=== PATIENT | female | born 1965 | race Caucasian/White ===

== ENCOUNTER 2019-05-02 09:05 | Observation (INO) | payer SELFPAY ==
[2019-05-02 09:52] LABS: #Basophils 0.1 thou/uL (0.0-0.2); #Eosinphils 0.1 thou/uL (0.0-0.7); #Lymphocytes 2.1 thou/uL (1.20-3.40); #Monocytes 0.6 thou/uL (0.11-0.59); #Neutrophils 4.1 thou/uL (1.40-6.50); %Basophils 0.8 % (0.0-1.0); %Eosinophils 1.9 % (0.0-10.0); %Lymphocytes 30.1 % (21.0-51.0); %Neutrophils 59.3 % (42.0-75.0); Hemoglobin 13.2 g/dL (12.0-16.0); Mean Corpuscular HGB CONC 33.4 g/dL (32.0-36.0); Mean Corpuscular Hemoglobin 31.3 pg (27.0-31.0); Mean Corpuscular Volume 93.7 fL (78.0-98.0); Mean Platelet Volume 7.7 fL (7.4-10.4); Platelet Count 268 thou/uL (130-400); RBC Distribution Width 11.4 % (11.5-14.5); Red Blood Cell (RBC) Count 4.22 mill/uL (4.20-5.40); White Blood Cell (WBC) Count 6.9 thou/uL (4.8-10.8)
--- NOTE | 2019-05-02 10:02 | RAD ---
EXAM: Single view of the chest HISTORY: Chest pain COMPARISON: 08/04/2018 FINDINGS: Single view of the chest shows a normal sized cardiomediastinal silhouette. There is no isaac dence of consolidation, mass, or pleural effusion. The bones are unremarkable. IMPRESSION: No evidence of acute cardiopulmonary disease
[2019-05-02] MEDS ORDERED: Nitroglycerin 0.4 MG TAB 1 EACH ONE (10:43)
[2019-05-02] MEDS ORDERED: Aspirin Chewable 81 MG TAB ONE (10:43)
[2019-05-02] MEDS ORDERED: Fentanyl 100 MCG/2 ML VIAL ONE (11:08)
[2019-05-02 11:32] LABS: ALT (SGPT) 43 U/L (8-55); AST (SGOT) 29 U/L (5-34); Albumin 4.1 g/dL (3.5-5.0); Alkaline Phosphatase 77 U/L (40-150); Anion Gap 13 mmol/L (10-20); BUN (Urea Nitrogen) 14 mg/dL (9.8-20.1); Bilirubin, Total 0.7 mg/dL (0.2-1.2); Calc. Creatinine Clearance 0 mL/min (70-130); Calcium 9.2 mg/dL (7.8-10.44); Carbon Dioxide 26 mmol/L (22-29); Chloride 100 mmol/L (98-107); Estimated GFR-MDRD 76; Globulin 3.5 g/dL (2.4-3.5); Glucose 92 mg/dL (70-105); Lipase 42 U/L (8-78); Potassium 3.9 mmol/L (3.5-5.1); Protein, Total 7.6 g/dL (6.0-8.3); Sodium 135 mmol/L (136-145)
[2019-05-02 14:28] LABS: Troponin I Less than 0.010 ng/mL (< 0.028)
[2019-05-02] MEDS ORDERED: Ondansetron ODT 4 MG TAB SL PRN (16:06)
[2019-05-02] MEDS ORDERED: Ondansetron PF 4 MG/2 ML Vial IVP PRN (16:06)
[2019-05-02] MEDS ORDERED: Sodium Chloride 0.9% 1,000 ML IV SCH (16:06)
[2019-05-02 16:13] VITALS: BMI 39.1
[2019-05-02 17:39] LABS: Troponin I Less than 0.010 ng/mL (< 0.028)
[2019-05-02] MEDS ORDERED: Nitroglycerin 0.4 MG TAB (25 Tab Bottle) PO PRN (18:44)
[2019-05-02] MEDS ORDERED: HYDROcodone/Acetaminophen 5/325 mg Tablet PO PRN (20:28)
[2019-05-02] MEDS ORDERED: Acetaminophen 500 MG TAB PO PRN (20:28)
[2019-05-02] MEDS ORDERED: Ondansetron ODT 4 MG TAB PO PRN (20:28)
[2019-05-02] MEDS ORDERED: Atenolol 50 MG TAB PO SCH (21:00)
[2019-05-02] MEDS ORDERED: Dicyclomine 10 MG CAP PO PRN (21:00)
[2019-05-02] MEDS ORDERED: traMADol HCl 50 MG TAB PO PRN (21:00)
[2019-05-02] MEDS ORDERED: Nortriptyline 10 MG CAP PO SCH (21:00)
--- NOTE | 2019-05-03 01:22 | HP ---
CHIEF COMPLAINT: Chest pain. HISTORY OF PRESENT ILLNESS: The patient is a 53-year-old female with past medical history significant for hypertension, untreated hyperlipidemia, obesity, and family history of coronary artery disease, who presented to the hospital today with complaints of chest pain that has been going on for the past several days. The patient states that the pain begins in the center of her chest and radiates to the left shoulder and left arm. It is associated with shortness of breath and palpitations. She states that the pain has been somewhat constant, but did get better last night when her made her a mixed drink. She was seen by her PCP at [facility], who recommended the patient come to the ER yesterday; however, the patient could not present to the ER secondary to some type of transportation issue. She states that she had chest discomfort like this about a year ago and was seen in the [place] [facility] where EKG and blood work were done and she was told that the pain was likely noncardiac. Since her arrival to the hospital, workup has included serial cardiac enzymes which are negative x3. Her EKG shows normal sinus rhythm. There are no ischemic ST or T-wave changes noted. Interestingly, she did say that when she was given sublingual nitroglycerin, her chest pain became worse, along with her palpitations. At the time of my interview, the patient is resting comfortably and states that her chest discomfort is mild at this time. Chest x-ray shows no acute cardiopulmonary process. REVIEW OF SYSTEMS: A 12-point review of systems performed and is negative except that stated above. The patient denies any dysuria, blood in urine or stool, or reflux at this time. She has had no recent illnesses or recent ill contacts. ALLERGIES: CEFRADINE AND SULFA. HOME MEDICATIONS: 1. Atenolol 50 mg tablet, one tablet p.o. at bedtime. 2. Bentyl 20 mg tablet p.o. t.i.d. p.r.n. 3. Cymbalta 30 mg capsule, one capsule daily. 4. Naproxen 500 mg tablet, one tablet p.o. b.i.d. p.r.n. 5. Nortriptyline 10 mg tablet p.o. at bedtime. 6. Pantoprazole 40 mg tablet, one tablet p.o. at bedtime. 7. Tramadol 50 mg tablet, one tablet p.o. t.i.d. p.r.n. PAST MEDICAL HISTORY: Positive for chronic back pain, GERD, history of gastric ulcers and colonic polyps. Also positive for hypertension, hyperlipidemia, and fibromyalgia. PAST SURGICAL HISTORY: History of colonoscopy and hysterectomy. PSYCHIATRIC HISTORY: Positive for anxiety, depression, and PTSD. She states that she follows up with [facility] on a weekly basis. SOCIAL HISTORY: The patient does drink alcohol on occasion. She has no smoking history or history of illicit drug use. FAMILY HISTORY: Positive for coronary artery disease in her mother who had bypass surgery fairly recently. CODE STATUS: The patient is a full code and this was discussed with the patient at length. PHYSICAL EXAMINATION: VITAL SIGNS: Blood pressure 125/56, pulse is 67, respirations 20, O2 saturation is 97% on room air, patient is afebrile. GENERAL: The patient is a moderately obese female, resting in bed, in no acute distress. HEENT: Head is atraumatic and normocephalic. Mucous membranes are moist. NECK: Supple. No lymphadenopathy. Trachea is midline. No carotid bruits. CV: S1 and S2, regular rate and rhythm. No appreciable murmurs, rubs, or gallops. LUNGS: Regular respiratory rate and pattern. Clear to auscultation bilaterally. ABDOMEN: Positive bowel sounds. Nontender, obese, soft. No masses noted. EXTREMITIES: No lower extremity pitting edema. +2 DP pulses bilaterally. SKIN: Warm and dry. NEUROLOGIC: Cranial nerves II through XII are grossly intact. The patient is alert and oriented x3. The patient is nonfocal. LABORATORY DATA: White blood cell count 6.9, hemoglobin 13.2, hematocrit 39.5, platelet count is 268. Sodium 135, potassium 3.9, chloride 100, carbon dioxide 26, anion gap is 13, BUN 14, creatinine 0.8. AST, ALT, and alkaline phosphatase are all within normal limits. Serial troponin is negative x3. Lipase is 42. ASSESSMENT: 1. Chest pain, atypical and typical features, acute coronary syndrome ruled out. 2. Palpitations, likely premature ventricular contractions versus premature atrial contractions. 3. Hypertension. 4. Hyperlipidemia, currently untreated. 5. Fibromyalgia. 6. Anxiety/depression/post-traumatic stress disorder. 7. Family history of coronary artery disease. PLAN: At this time, we will proceed with nuclear stress test to rule out reversible ischemia in this patient with multiple risk factors for coronary artery disease. We will continue her antihypertensive regimen along with her Cymbalta and nortriptyline. We will obtain a fasting lipid panel tomorrow morning and initiate statin therapy accordingly. Further recommendations based on findings of noninvasive testing to be performed tomorrow morning. The care of this patient was discussed with Dr. Horn who agrees with the plan as outlined above. Job ID: [id number]
[2019-05-03 07:15] LABS: Cardiac Risk 6.4 (Less than 4.5)
[2019-05-03 08:27] VITALS: TEMP 97.8
[2019-05-03] MEDS ORDERED: DULoxetine 30 MG CAP PO SCH (09:00)
[2019-05-03 12:33] VITALS: BP 127/69
--- NOTE | 2019-05-03 12:41 | NM ---
NM Cardiac Stress W EF WF History: [Chest pain] Comparison: None. Findings: Stress was performed after intravenous ministration 3 2.2 mCi technetium 99m sestamibi. No rest images were obtained. Adequate left ventricular uptake of radiotracer. Normal wall motion. Calculated ejection fraction is 84%. No scar or ischemia. Impression: Normal examination.
[2019-05-03] MEDS ORDERED: ADENOSINE 60 MG/20 ML VIAL ONE (14:33)
--- NOTE | 2019-05-03 20:22 | DIS ---
DATE OF ADMISSION: 05/02/2019 DATE OF DISCHARGE: 05/03/2019 CHIEF COMPLAINT: On admission: Chest pain. DISCHARGE DIAGNOSES: 1. Chest pain, resolved, acute coronary syndrome ruled out. MPI negative for reversible ischemia, suspect musculoskeletal versus fibromyalgia versus possible GI related. 2. Hypertension, well controlled on atenolol. 3. Hyperlipidemia. 4. Anxiety/posttraumatic stress disorder. 5. Fibromyalgia. BRIEF HOSPITAL COURSE: The patient is a 53-year-old female with past medical history outlined as above, who presented to the emergency room with complaints of chest pain that actually had been ongoing for the past several days. It had been somewhat constant, but was also partially relieved when the patient's made her a next drink. The patient was admitted for chest pain rule out. Her serial troponin was negative x3. Her EKG showed sinus rhythm with no notable ischemic ST or T-wave changes. Given her multiple risk factors including family history of coronary artery disease, she did undergo a nuclear stress test that showed no evidence of reversible ischemia and normal left ventricular systolic function with EF calculated at 84%. On the morning of my interview, the patient states that she has not had any further chest pain today. She denies any chest pain or palpitations. Review of telemetry shows no PVCs, PACs, or other arrhythmia. The patient's cholesterol was significantly elevated with total cholesterol of 225 and LDL at 169, and this was discussed with the patient at length. DISCHARGE DISPOSITION: Home. CONDITION AT DISCHARGE: Stable. DISCHARGE INSTRUCTIONS/FOLLOWUP CARE: The patient will continue aggressive risk factor modification including continuation of her beta mahendra and monitoring her blood pressure at home. Given her mixed hyperlipidemia, I will start medical therapy with Lipitor 20 mg at bedtime. The patient has been counseled on this medication as well as possible side effects. She will follow up with her primary care physician at [facility] for followup labs including repeat LFTs after the patient has been initiated on statin therapy. Regarding aspirin 81 mg daily, I have discussed this with the patient at length as well, and she will discuss this with her primary care physician. There is conflicting research at this time regarding aspirin for primary prevention in patients with no known disease. All questions have been answered to the patient's satisfaction, and she will be discharged home in good condition today. Care of this patient has been discussed with Dr. Robles who agrees with the above. Job ID: [id number]
== END 2019-05-03 13:37 | disposition home or self-care (01) ==
LOC: ERS 09:05 → 2SW 12:50
PROVIDERS: ADMIT Internal Medicine; ATTEND Internal Medicine
DX: R07.89 Other chest pain (principal); R00.2 Palpitations; I10 Essential (primary) hypertension; E78.5 Hyperlipidemia, unspecified; F41.9 Anxiety disorder, unspecified; F43.10 Post-traumatic stress disorder, unspecified; F32.9 Major depressive disorder, single episode, unspecified; M79.7 Fibromyalgia; E66.9 Obesity, unspecified; K21.9 Gastro-esophageal reflux disease without esophagitis; Z82.49 Family history of ischemic heart disease and other diseases of the circulatory system; Z68.39 Body mass index [BMI] 39.0-39.9, adult; Z88.2 Allergy status to sulfonamides; Z88.1 Allergy status to other antibiotic agents; Z79.899 Other long term (current) drug therapy
CPT/HCPCS: 36415; 71045; 78452; 80053; 80061; 83690; 84484; 85025; 93005; 93017; 94760; 96361; 96374; A9500; G0378; J0153; J3010

== ENCOUNTER 2020-04-04 17:22 | Emergency (ER) | payer OTHER, SELFPAY ==
[2020-04-04 17:53] LABS: #Eosinphils 0.2 thou/uL (0.0-0.7); #Lymphocytes 2.2 thou/uL (1.20-3.40); #Monocytes 0.8 thou/uL (0.11-0.59); %Basophils 0.6 % (0.0-1.0); %Eosinophils 2.4 % (0.0-10.0); %Lymphocytes 31.1 % (21.0-51.0); %Monocytes 10.4 % (0.0-10.0); %Neutrophils 55.4 % (42.0-75.0); Hemoglobin 14.1 g/dL (12.0-16.0); Mean Corpuscular HGB CONC 32.2 g/dL (32.0-36.0); Mean Corpuscular Hemoglobin 30.3 pg (27.0-31.0); Mean Corpuscular Volume 94.2 fL (78.0-98.0); Mean Platelet Volume 7.6 fL (7.4-10.4); Platelet Count 298 thou/uL (130-400); RBC Distribution Width 11.3 % (11.5-14.5); Red Blood Cell (RBC) Count 4.65 mill/uL (4.20-5.40); White Blood Cell (WBC) Count 7.2 thou/uL (4.8-10.8)
--- NOTE | 2020-04-04 18:11 | CT ---
CT BRAIN NONCONTRAST: DATE: 04/04/2020 HISTORY: 54-year-old female with left-sided paresthesia and hypesthesia. Rule out stroke. FINDINGS: There is no evidence of acute intra-axial or extra-axial hemorrhage. There is no midline shift or any other mass effect. There is no extra-axial fluid collection. There is no evidence of obstructive hydrocephalus. Calvarium is intact. IMPRESSION: No acute intracranial findings.
[2020-04-04 18:13] LABS: ALT (SGPT) 57 U/L (8-55); AST (SGOT) 48 U/L (5-34); Albumin 4.5 g/dL (3.5-5.0); Alkaline Phosphatase 122 U/L (40-110); Anion Gap 16 mmol/L (10-20); BUN (Urea Nitrogen) 8 mg/dL (9.8-20.1); Bilirubin, Total 0.8 mg/dL (0.2-1.2); Calc. Creatinine Clearance 0 mL/min (70-130); Calcium 9.8 mg/dL (7.8-10.44); Carbon Dioxide 23 mmol/L (22-29); Chloride 101 mmol/L (98-107); Estimated GFR-MDRD 80; Globulin 3.8 g/dL (2.4-3.5); Glucose 106 mg/dL (70-105); Potassium 3.9 mmol/L (3.5-5.1); Protein, Total 8.3 g/dL (6.0-8.3); Sodium 136 mmol/L (136-145)
== END 2020-04-04 18:30 | disposition home or self-care (01) ==
LOC: ERS 17:22
DX: M54.12 Radiculopathy, cervical region (principal); I10 Essential (primary) hypertension; E78.00 Pure hypercholesterolemia, unspecified; F41.9 Anxiety disorder, unspecified; F32.9 Major depressive disorder, single episode, unspecified; F43.10 Post-traumatic stress disorder, unspecified; G89.29 Other chronic pain; E78.5 Hyperlipidemia, unspecified; Z79.899 Other long term (current) drug therapy
CPT/HCPCS: 36415; 36416; 70450; 80053; 84484; 85025; 93005

== ENCOUNTER 2022-11-27 01:58 | Emergency (ER) | payer MEDICARE, SELFPAY ==
[2022-11-27 02:50] LABS: Bilirubin Negative (Negative); Blood, Urine Negative (Negative); Clarity Clear (Clear); Glucose, Urine (Dipstick) Normal (Negative); Ketone, Urine Trace mg/dL (Negative); Leukocyte 250 Leu/uL (Negative); Nitrite Negative (Negative); Protein, Urine (Dipstick) 20 mg/dL (Neg-Trace); RBC/HPF 0-3 HPF (0-3); Specific Gravity, Urine 1.033 (1.002-1.036); Squamous Epithelial 0-3 HPF (0-3); Urobilinogen Normal mg/dL (Less than 2); WBC/HPF 21-50 HPF (0-3); pH, Urine 5.5 (5.0-9.0)
[2022-11-27 02:56] LABS: Amphetamine Not Detected (NotDetected); Barbiturates Screen Not Detected (NotDetected); Benzodiazepine Screen Not Detected (NotDetected); Cocaine Metabolite Screen Not Detected (NotDetected); Methadone Not Detected (NotDetected); Methamphetamine Not Detected (NotDetected); Opiate Screen Not Detected (NotDetected); Oxycodone Screen Not Detected (NotDetected); Phencyclidine (PCP) Not Detected (NotDetected); THC/Cannabinoid Screen Detected (NotDetected); Tricyclic Screen Not Detected (NotDetected)
[2022-11-27 03:06] LABS: #Eosinphils 0.1 thou/uL (0.0-0.7); #Lymphocytes 2.3 thou/uL (1.20-3.40); #Monocytes 0.5 thou/uL (0.11-0.59); #Neutrophils 5.9 thou/uL (1.40-6.50); %Basophils 0.5 % (0.0-1.0); %Eosinophils 0.9 % (0.0-10.0); %Lymphocytes 25.7 % (21.0-51.0); %Monocytes 5.8 % (0.0-10.0); %Neutrophils 67.1 % (42.0-75.0); Hemoglobin 12.4 g/dL (12.0-16.0); Mean Corpuscular HGB CONC 34.1 g/dL (32.0-36.0); Mean Platelet Volume 6.9 fL (7.4-10.4); Platelet Count 290 10x3/uL (130-400); RBC Distribution Width 11.5 % (11.5-14.5); White Blood Cell (WBC) Count 8.8 10x3/uL (4.8-10.8)
[2022-11-27 03:06] LABS: Bacteria/HPF 1+ HPF (None Seen)
[2022-11-27 03:38] LABS: ALT (SGPT) 27 U/L (8-55); AST (SGOT) 19 U/L (5-34); Alkaline Phosphatase 90 U/L (40-110); Anion Gap 17 mmol/L (10-20); BUN (Urea Nitrogen) 13 mg/dL (9.8-20.1); Bilirubin, Total 0.5 mg/dL (0.2-1.2); Calc. Creatinine Clearance 0 mL/min (70-130); Calcium 9.4 mg/dL (7.8-10.44); Carbon Dioxide 21 mmol/L (22-29); Chloride 103 mmol/L (98-107); Estimated GFR 91; Globulin 3.3 g/dL (2.4-3.5); Glucose 156 mg/dL (70-105); Potassium 3.8 mmol/L (3.5-5.1); Protein, Total 7.3 g/dL (6.0-8.3); Sodium 137 mmol/L (136-145)
[2022-11-27 03:39] LABS: Acetaminophen Less than 10.0 mcg/mL (10.0-30.0); Alcohol Less than 10 mg/dL (Less than 10); CK (CPK) 40 U/L (29-168); Salicylate Less than 8.0 mg/dL (15.0-30.0)
[2022-11-27] MEDS ORDERED: Acetaminophen 500 MG TAB ONE ×2 (09:59)
[2022-11-27] MEDS ORDERED: Nitrofurantoin Monohyd/M-Cryst 100 MG CAP PO SCH (10:30)
== END 2022-11-27 12:17 ==
LOC: ERS 01:58
DX: N39.0 Urinary tract infection, site not specified (principal); E78.00 Pure hypercholesterolemia, unspecified; I10 Essential (primary) hypertension; E11.9 Type 2 diabetes mellitus without complications
CPT/HCPCS: 80053; 80306; 80307; 81003; 81015; 82550; 84443; 85025; 87077; 87086; 87186; 93005